=== PATIENT | female | born 2000 | race Caucasian/White ===

== ENCOUNTER → 2022-01-24 12:44 | Outpatient (ROUT) | payer OTHER, MEDICAID, SELFPAY ==
[2022-01-24 13:52] LABS: COVID-19 CEPHEID PCR (VTM/NP) Negative (Negative)
== END ==
PROVIDERS: PCP Pediatrics; Visit Provider Otolaryngology
DX: Z20.822 Contact with and (suspected) exposure to COVID-19 (principal)
CPT/HCPCS: U0003; U0005

== ENCOUNTER 2022-01-26 08:37 | Day surgery (SDC) | payer OTHER, MEDICAID, SELFPAY ==
[2022-01-26] VITALS (7 sets, daily range): BP systolic 126–150; BP diastolic 73–94; PULSE 60–87; RESP 15–18; TEMP 35.9–36.7; O2SAT 98–100; BMI 35.0
--- NOTE | 2022-01-26 09:23 | PM.PREOP ---
Pre-operative Note Interval Note History & Physical reviewed/Exam performed by Physician: Yes Changes to H&P: No
--- NOTE | 2022-01-26 09:24 | PM.HP.1 ---
History of Present Illness History of Present Illness Date Patient Seen: 01/26/22 Time Patient Seen: 09:24 Chief complaint: TONSILLECTOMY & POSS ADENOIDECTOMY Narrative: 21-year-old female last seen in clinic 11/02/2021 with chronic tonsillitis, throat pain and tonsillar hypertrophy with respiratory obstruction, incompletely managed with medical therapy, presents for tonsillectomy and possible adenoidectomy as outpatient. No interval change in symptoms since last visit, no recent cough, cold, or fever. Meds Home Medications and Allergies Home Medications Medication Instructions Recorded Confirmed Type No Known Home Medications 01/26/22 01/26/22 History Allergies Allergy/AdvReac Type Severity Reaction Status Date / Time No Known Drug Allergies Allergy Verified 01/26/22 09:17 Review of Systems Review of Systems Narrative: Negative except as listed in the HPI Exam Narrative Exam Narrative: Well-developed well-nourished female in no acute distress heart regular rate and rhythm without murmur, lungs clear to auscultation bilaterally Assessment & Plan Assessment & Plan narrative: Assessment: 1. Chronic tonsillitis 2. Throat pain 3. Tonsillar hypertrophy 4. Respiratory obstruction Plan: Following discussion of the material risks benefits complications and alternatives, the patient elected to proceed with tonsillectomy and possible adenoidectomy. Time Spent With Patient Critical Care time: I spent a total of [] minutes of critical care time on this patient's care today; this time is exclusive of procedural time.
--- NOTE | 2022-01-26 09:26 | PM.OP.1 ---
Operative Date/Time/Diagnoses Date of procedure: 01/26/22 Time of procedure: 11:09 Pre-op diagnosis: Chronic tonsillitis, throat pain, tonsillar hypertrophy, upper airway obstruction Post-op diagnosis: same (also mild adenoid hypertrophy) Procedure & Clinicians Procedure: Tonsillectomy and adenoidectomy Same procedure as scheduled: Yes Indications: 21-year-old female with above diagnoses incomplete managed with medical therapy presents for the above procedure. Following discussion of the material risks benefits complications and alternatives, she elected to proceed. Surgeon: Everardo Riley Click Yes if Unassisted: Yes Anesthesia Type: General and Local Operative Notes Findings: Intact palate, single uvula, 3+ tonsils, 2+ adenoids Estimated Blood Loss (mL): 10 Procedure in detail: Following identification and confirmation of consent the patient was brought to the operating room suite and placed in the supine position. General endotracheal anesthesia was administered. A head wrap, shoulder roll, and mouth gag were placed and a red rubber catheter was inserted through the nostril and out the mouth to retract the soft palate. Partially obstructive adenoid tissue was ablated with suction electrocautery on a setting of 40, without injury to the eustachian tube orifices or choana. The left tonsil was retracted medially and suction electrocautery on a setting of 30 was used to dissect the tonsil in a subcapsular plane, followed by hemostasis with the same. This process was repeated on the right side with identical findings. The tonsillar fossae were superficially infiltrated bilaterally with 1% lidocaine 1 100,000 epinephrine. Mouth gag and rubber catheter were removed and the patient was extubated in the operating room and taken to the recovery room in stable condition without known complication. Complications: none Post-operative Condition: stable Disposition: same day surgery Plan for aftercare: Push fluids, alternate Tylenol and Advil every 3 hours for baseline pain control, oxycodone for breakthrough pain. Soft diet 2 full weeks, no heavy lifting or straining 2 weeks.
[2022-01-26] MEDS: LACTATED RINGERS 1,000 ML 42 ML IV ×2 (09:31→11:56)
--- NOTE | 2022-01-26 10:31 | SUR.OPER ---
Supine on padded OR bed, head on pillow, arms padded and tucked at sides, legs uncrossed, safety belt at thigh, tape over blanket over lower legs .
[2022-01-26] MEDS: LIDOCAINE 1% W/EPI 20 ML INJ (10:49)
[2022-01-26] MEDS: OXYCODONE/ACETAMINOPHEN 5/325 TABLET 1 TAB PO (11:37)
[2022-01-26] MEDS: ONDANSETRON 4 MG/2 ML INJ IV (11:56)
--- NOTE | 2022-01-26 12:04 | SUR.PHASEII ---
Received pt from PACU, pt reporting nausea and on the verge of vomiting. Beverages and snack removed, prn given, IVF restarted, ice chips to sooth throat. Updated family that pt will need a little more time in recovery.
[2022-01-26] MEDS: METOCLOPRAMIDE 10 MG/2 ML INJ IV (12:20)
== END 2022-01-26 12:45 | disposition home or self-care (01) ==
PROVIDERS: PCP Family Medicine; Referring Provider Otolaryngology; Visit Provider Otolaryngology
PROC: (CPT 42821; principal; 2022-01-26 10:00)
DX: J35.01 Chronic tonsillitis (principal); J98.8 Other specified respiratory disorders
CPT/HCPCS: 42821; 81025; J1100; J2250; J2405; J2765; J3010